=== PATIENT | female | born 1990 | race Caucasian/White ===

== ENCOUNTER 2021-02-16 10:14 | Emergency (ER) | payer OTHER ==
[~2021-02-16] VITALS: Ht 172.7 cm; Wt 106.6 kg
[2021-02-16] MEDS ORDERED: BUSPIRONE HCL5 MG PO (10:49)
[2021-02-16] MEDS ORDERED: LEXAPRO10 MG PO (10:49)
[2021-02-16] MEDS ORDERED: VENTOLIN HFA18 GM INH (10:49)
[2021-02-16] MEDS ORDERED: CONCERTA36 MG PO (10:49)
[2021-02-16] MEDS ORDERED: OMEPRAZOLE20 MG PO (10:50)
[2021-02-16] MEDS ORDERED: VITAMIN D310 MC2 PO (10:50)
== END 2021-02-16 12:19 | disposition home or self-care (01) ==
LOC: ED 10:14
DX: S30.1XXA Contusion of abdominal wall, initial encounter (principal); W22.8XXA Striking against or struck by other objects, initial encounter; Z79.899 Other long term (current) drug therapy
CPT/HCPCS: 81001; 99283

== ENCOUNTER 2021-02-26 11:57 | Emergency (ER) | payer OTHER ==
[~2021-02-26] VITALS: Ht 172.7 cm; Wt 106.6 kg
[~2021-02-26 11:57] MED LIST: BUSPIRONE HCL5 MG PO; CONCERTA36 MG PO; LEXAPRO10 MG PO; OMEPRAZOLE20 MG PO; VENTOLIN HFA18 GM INH; VITAMIN D310 MC2 PO
--- OUTSIDE RECORDS SUMMARY | 2021-02-26 12:00 | XMS ---
PreManage Notification: JOYCE LUCIO [employer] Fe[employer] Events 1 event(s) in the past 18 months Most recent security events: Elopement at [facility] 02/17/2021 21:45 - Other Details: PATIENT LWBS CRITERIA MET - [facility] - 2 Visits in 30 Days CARE PROVIDERS There are no care providers on record at this time. Mariela has no Care Guidelines for this patient. E.D. VISIT COUNT (12 MO.) 3 [facility] TOTAL 3 NOTE: Visits indicate total known visits. ED/UCC VISIT TRACKING (12 MO.) 02/26/2021 11:58 [facility] [place] TYPE: Emergency COMPLAINT: - LUMP ON STOMACHE, LOWER BACK PAIN 02/17/2021 21:45 [facility] [place] TYPE: Emergency COMPLAINT: - FINGER LACERATION 02/16/2021 10:15 [facility] [place] TYPE: Emergency COMPLAINT: - STOMACHE BRUISE DIAGNOSES: - Other [facility] (current) drug therapy - Contusion of abdominal wall, initial encounter - Striking against or struck by other objects, initial encounter INPATIENT VISIT TRACKING (12 MO.) No inpatient visits to display in this time frame [email or web address]
== END 2021-02-26 17:30 | disposition home or self-care (01) ==
LOC: ED 11:57
DX: S30.1XXA Contusion of abdominal wall, initial encounter (principal); W01.10XA Fall on same level from slipping, tripping and stumbling with subsequent striking against unspecified object, initial encounter; Z88.5 Allergy status to narcotic agent; Z79.899 Other long term (current) drug therapy
CPT/HCPCS: 72100; 81001; 99283-25

== ENCOUNTER 2023-10-21 10:55 | Emergency (ER) | payer OTHER ==
[~2023-10-21] VITALS: Ht 172.7 cm; Wt 99.0 kg
[2023-10-21] MEDS ORDERED: PROPRANOLOL HCL20 MG PO (11:03)
[2023-10-21] MEDS ORDERED: LANSOPRAZOLE30 MG PO (11:03)
[2023-10-21] MEDS ORDERED: SERTRALINE HCL100 MG PO (11:03)
[2023-10-21] MEDS ORDERED: IBUPROFEN 600 MG TAB PO ONE (11:15)
[2023-10-21 12:11] VITALS: BP 128/73
== END 2023-10-21 12:14 | disposition home or self-care (01) ==
LOC: ED 10:55
DX: S90.31XA Contusion of right foot, initial encounter (principal); W20.8XXA Other cause of strike by thrown, projected or falling object, initial encounter; F41.9 Anxiety disorder, unspecified; F98.8 Other specified behavioral and emotional disorders with onset usually occurring in childhood and adolescence; Z88.5 Allergy status to narcotic agent; Z79.899 Other long term (current) drug therapy
CPT/HCPCS: 73630; 99283; A9270

== ENCOUNTER 2024-06-07 19:01 | Emergency (ER) | payer OTHER ==
[~2024-06-07] VITALS: Ht 172.7 cm; Wt 103.1 kg
[~2024-06-07 19:01] MED LIST changes: +LANSOPRAZOLE30 MG PO; +PROPRANOLOL HCL20 MG PO; +SERTRALINE HCL100 MG PO
[2024-06-07 21:26] LABS: BASOPHILS 0.4 % (0-2); EOSINOPHILS 0.5 % (0-6); HEMATOCRIT 42.7 % (35.0-50.0); HEMOGLOBIN 14.8 g/dL (12.0-18.0); LYMPHOCYTES 13.7 % (24-44); MCH 29.7 (27-36); MCHC 34.6 g/dl (30-36); MCV 85.8 fl (81-99); MONOCYTES 4.3 % (0-12); NEUTROPHILS 81.1 % (39-80); PLATELET COUNT 300 K/uL (140-440); RBC 4.97 M/ul (4.3-5.7); RDW 12.7 (10.5-15.0)
[2024-06-07] MEDS ORDERED: diphenhydrAMINE HCL 50 MG/ML VIAL IV ONE (21:30)
[2024-06-07] MEDS ORDERED: METOCLOPRAMIDE HCL 10 MG/2 ML SDV IV ONE (21:30)
[2024-06-07] MEDS ORDERED: SYMBICORT 16010.2 GM INH (21:35)
[2024-06-07 21:40] LABS: ALBUMIN 4.5 g/dL (3.4-5.0); ALBUMIN/GLOBULIN RATIO 1.13 (1.1-2.4); ANION GAP 14.7 (7-21); BILIRUBIN, TOTAL 0.8 mg/dL (0.2-1.0); BUN/CREATININE RATIO 13.95 (6.0-28.6); CALCIUM 8.9 mg/dL (8.5-10.1); CREATININE, SERUM 0.86 mg/dL (0.55-1.02); MAGNESIUM 2.1 mg/dL (1.8-2.4); POTASSIUM 3.7 mmol/L (3.5-5.1); PROTEIN, TOTAL 8.5 g/dL (6.4-8.2)
[2024-06-07] MEDS ORDERED: REGLAN10 MG PO (22:14)
[2024-06-07] MEDS ORDERED: ONDANSETRON 4 MG HOME.PACK SL ONE (22:30)
[2024-06-07] MEDS ORDERED: SODIUM CHLORIDE 0.9% 1,000 ML IV PRN (22:30)
[2024-06-07] MEDS ORDERED: PROMETHAZINE HCL 25 MG SUPP. HOME.PACK PR ONE (22:30)
[2024-06-07 22:42] VITALS: BP 115/55
== END 2024-06-07 22:44 | disposition home or self-care (01) ==
LOC: ED 19:01
PROVIDERS: Family Medicine
DX: R11.2 Nausea with vomiting, unspecified (principal); T50.5X5A Adverse effect of appetite depressants, initial encounter; R10.9 Unspecified abdominal pain
CPT/HCPCS: 36415; 74018; 80053; 83735; 84703; 85025; 96361; 96374; 96375; 99284-25; A9270; J1200; J2765; J7030